=== PATIENT | male | born 1960 | race Caucasian/White ===

== ENCOUNTER 2023-09-19 13:18 | Outpatient (CLI) | payer MEDICARE, SELFPAY ==
--- NOTE | ~2023-09-19 | CT_ITS ---
EXAMINATION: CT cervical spine wo con DATE: 09/19/2023 13:43 INDICATION: Cervical radiculopathy. Bilateral hand tingling. TECHNIQUE: Computed tomography (CT) of the cervical spine was performed without intravenous contrast. Automated exposure control and iterative reconstruction technique were employed. The dose-length pro duct was 599.32 mGy-cm. COMPARISON: None FINDINGS: There is mild emphysema. Calcified pulmonary nodules and calcified mediastinal lymph nodes are consistent with old granulomatous disease. There is 3 degrees dextrocurvature of cervicothoracic spine. There is kyphosis of lower cervical spine. There are changes of anterior fusion procedure from C5 to T1 with healed interbody bone graft and anterior plate and screws. There is moderately decreas ed disc height at C2-C3. The following disc levels are specifically discussed: C2-C3: There is severe bilateral uncovertebral joint osteoarthritis. There is severe bilateral facet joint osteoarthritis. There is mild bilateral neural foraminal stenosis. There is no central canal st enosis. C3-C4: There is moderate right and mild left uncovertebral joint osteoarthritis. There is severe bila teral facet joint osteoarthritis. There is moderate right and mild left neural foraminal stenosis. Th ere is mild central canal stenosis. C4-C5: There is moderate right and mild left uncovertebral joint osteoarthritis. There is severe righ t and mild left facet joint osteoarthritis. There is moderate right neural foraminal stenosis. There is mild central canal stenosis. C5-C6: There is mild bilateral uncovertebral joint hypertrophy. There is ankylosis of the facet joint s with mild hypertrophy. There is mild bilateral neural foraminal stenosis. There is no central canal stenosis. C6-C7: There is moderate right and mild left uncovertebral joint hypertrophy. There is ankylosis of t he facet joints without hypertrophy. There is mild bilateral neural foraminal stenosis. There is mild central canal stenosis. C7-T1: There is no uncovertebral joint hypertrophy. There is ankylosis of the facet joints with mild hypertrophy. There is mild bilateral neural foraminal stenosis. There is no central canal stenosis. IMPRESSION: 1. Moderate cervical spondylosis. 2. Anterior fusion procedure from C5 to T1. Reviewed, dictated and finalized at location A. [employer]
== END 2023-09-19 13:19 | disposition home or self-care (01) ==
LOC: CHSIMG 13:23
PROVIDERS: PCP Physician Assistant; Visit Provider Physician Assistant
DX: M54.12 Radiculopathy, cervical region (principal); M43.02 Spondylolysis, cervical region; Z98.1 Arthrodesis status
CPT/HCPCS: 72125

== ENCOUNTER 2024-01-23 19:15 | Emergency (ER) | payer MEDICARE, SELFPAY ==
[2024-01-23] VITALS (11 sets, daily range): BP systolic 121–153; BP diastolic 75–87; PULSE 86; RESP 20; TEMP 36.7; O2SAT 93–95
--- NOTE | ~2024-01-23 | CT_ITS ---
EXAMINATION: CT brain wo con DATE: 01/23/2024 20:24 INDICATION: Head and neck injury. TECHNIQUE: Computed tomography (CT) of the head was performed without intravenous contrast. The mA wa s adjusted according to patient size. Iterative reconstruction technique was employed. The dose-lengt h product was 681.00 mGy-cm. COMPARISON: None FINDINGS: There is no intracranial hemorrhage, acute infarction, or abnormal intracranial mass lesion . The ventricles are normal in size. There is a left anterolateral scalp hematoma. There is mucosal t hickening in the paranasal sinuses. The mastoid air cells are normal. IMPRESSION: 1. Normal brain. Reviewed, dictated and finalized at location E. IMPRESSION: 1. Normal brain.
--- NOTE | ~2024-01-23 | CT_ITS ---
EXAMINATION: CT cervical spine wo con DATE: 01/23/2024 20:24 INDICATION: Head and neck injury. TECHNIQUE: Computed tomography (CT) of the cervical spine was performed without intravenous contrast. Automated exposure control and iterative reconstruction technique were employed. The dose-length pro duct was 681.00 mGy-cm. COMPARISON: None FINDINGS: There is kyphosis of lower cervical spine. There are changes of anterior fusion procedure f rom C5 to T1 with healed interbody bone graft and anterior plate and screws. Vertebral body heights a re normal. There is mildly decreased disc height at C2-C3. The following disc levels are specifically discussed: C2-C3: There is severe bilateral uncovertebral joint osteoarthritis. There is severe bilateral facet joint osteoarthritis. There is mild bilateral neural foraminal stenosis. There is no central canal st enosis. C3-C4: There is severe bilateral uncovertebral joint osteoarthritis. There is severe bilateral facet joint osteoarthritis. There is moderate right and mild left neural foraminal stenosis. There is mild central canal stenosis. C4-C5: There is moderate right and mild left uncovertebral joint osteoarthritis. There is severe righ t and mild left facet joint osteoarthritis. There is moderate right neural foraminal stenosis. There is mild central canal stenosis. C5-C6: There is mild bilateral uncovertebral joint hypertrophy. There is mild bilateral facet joint h ypertrophy. There is mild lateral neural foraminal stenosis. There is mild central canal stenosis. C6-C7: There is moderate bilateral uncovertebral joint hypertrophy. There is mild bilateral facet jignesh nt hypertrophy. There is mild bilateral neural foraminal stenosis. There is mild central canal stenos is. C7-T1: There is mild bilateral uncovertebral joint hypertrophy. There is mild bilateral facet joint h ypertrophy. There is mild left neural foraminal stenosis. There is no central canal stenosis. IMPRESSION: 1. No fracture. 2. Moderate cervical spondylosis. 3. Anterior fusion procedure from C5 to T1. Reviewed, dictated and finalized at location E.
--- NOTE | 2024-01-23 19:38 | ECG_ITS ---
SEE SCANNED COPY FOR CONFIRMED REPORT MTDD
[2024-01-23] MEDS: TETANUS,DIPHTHERIA,AC PERTUSSIS ADULT 0.5 ML (ADACEL) IM (19:47)
--- NOTE | 2024-01-23 19:52 | PC.NURSE ---
Pt ambulated to restroom without incident
[2024-01-23 19:59] LABS: Basophils Absolute Auto 0.11 K/mm3 (0.00-0.10); Basophils Percent Auto 0.8 % (0.0-1.0); Eosinophils Absolute Auto 0.45 K/mm3 (0.02-0.50); Eosinophils Percent Auto 3.1 % (1.0-6.0); Hematocrit 45.2 % (40.0-54.0); Hemoglobin 15.4 g/dL (14.0-18.0); Immature Granulocyte Absolute 0.08 K/mm3 (0.00-0.00); Immature Granulocyte Percent A 0.6 % (0.0-0.0); Lymphocytes Absolute Auto 3.11 K/mm3 (1.10-4.50); Lymphocytes Percent Auto 21.5 % (18.0-42.0); Mean Corpuscular HGB Conc 34.1 g/dL (32-36); Mean Corpuscular Hemoglobin 32.2 pg (27.0-31.0); Mean Corpuscular Volume 94.6 fL (78.0-102.0); Mean Platelet Volume 8.9 fl (8.7-11.0); Monocytes Absolute Auto 1.23 K/mm3 (0.10-0.90); Monocytes Percent Auto 8.5 % (2.0-11.0); Neutrophils Absolute Auto 9.48 K/mm3 (1.70-7.20); Neutrophils Percent Auto 65.5 % (50.0-70.0); Platelet Count Result 297 K/mm3 (150-420); Red Blood Count 4.78 M/mm3 (4.70-6.10); Red Cell Distribution Width 11.6 % (11.6-14.4); White Blood Count 14.5 K/mm3 (4.8-10.8)
[2024-01-23 20:07] LABS: Appearance Urine Clear (Clear); Bilirubin Urine Negative (Negative); Blood Urine Trace-intact (Negative); Color Urine Light Yellow (Yellow); Glucose Urine UA Negative (Negative); Ketones Urine Negative (Negative); Leukocyte Esterase Ur Negative LEU/UL (Negative); Nitrate Urine Negative (Negative); Protein Urine Negative (Negative); Specific Grav Ur <= 1.005 (1.010-1.020); Urobilinogen Urine 0.2 mg/dL (0.2-1.0)
[2024-01-23 20:18] LABS: Alanine Aminotransferase 99 U/L (16-63); Albumin Level 3.6 g/dL (3.4-5.0); Alkaline Phosphatase 67 U/L (46-116); Anion Gap 12 mmol/L (4-12); Aspartate Amino Transferase 77 U/L (15-37); Bilirubin,Total 0.3 mg/dL (0.00-1.00); Blood Urea Nitrogen 11 mg/dL (7-18); Calcium 8.3 mg/dL (8.5-10.1); Carbon Dioxide 25 mmol/L (21-32); Chloride 95 mmol/L (98-108); Creatine Kinase 311 U/L (39-308); Estimated CRCL calculation 82 ml/min; Estimated Glomerular Filt Rate > 60; Ethanol 185 mg/dL (0-6); Glucose 90 mg/dL (70-99); Osmolality Calculated 273 mOsm/kg (285-295); Potassium 3.8 mmol/L (3.5-5.1); Sodium 132 mmol/L (136-145); Total Protein 7.6 g/dL (6.4-8.2)
[2024-01-23 20:19] LABS: Lactic Acid Reflex 2.1 mmol/L (0.4-2.0)
[2024-01-23 20:21] LABS: Add Urine Microscopic? YES; Bacteria Urine None seen /hpf; RBC Urine 0-2 /hpf (0-2); Squamous Epithelial Cell Urine None seen /hpf (Few); WBC Urine 0-3 /hpf (0-3)
--- NOTE | 2024-01-23 20:38 | ED.HEATRA ---
HPI - Head Injury General Chief complaint: Fall Stated complaint: laceration Time Seen by Provider: 01/23/24 19:19 Source: patient and family Mode of arrival: wheelchair History of Present Illness HPI Narrative: This is a 63-year-old male who presents with syncopal episode after he has been drinking had approximately drains in for labs a park bench striking the left side of his forehead causing hematoma. Otherwise patient denies any chest pain or shortness of breath no fever chills no nausea vomiting no abdominal pain no flank pain no dysuria or hematuria. Complaint: head injury Onset (ago): hour(s) Mechanism of Injury: fall Place: outdoors Loss of Consciousness: yes Location of injury: frontal Severity: mild Severity scale (1-10): 3 Quality: dull Radiation: none Other Injuries: none Context: on aspirin Associated symptoms: denies other symptoms Related Data Home Medications Medication Instructions Recorded Confirmed aspirin 81 mg capsule 81 mg PO DAILY 01/23/24 01/23/24 atorvastatin 20 mg tablet 20 mg PO DAILY 01/23/24 01/23/24 lisinopril 20 mg tablet 20 mg PO DAILY 01/23/24 01/23/24 Allergies Allergy/AdvReac Type Severity Reaction Status Date / Time Penicillins AdvReac Itching Verified 01/23/24 19:19 Review of Systems Review of Systems: All systems reviewed & are unremarkable except as noted in HPI and below PMFSH Past Medical History Medical History HTN (hypertension) Exam Const: General: no acute distress Nutritional Appearance: well nourished Orientation/consciousness: patient oriented x3 HENMT: Head: normal to inspection Eyes: Conjunctivae: conjunctivae normal Pupils: Equal, round and reactive pupils present EOM: EOMs intact bilaterally Neck: Neck: normal visual inspection Chest: Chest palpation & inspection: normal inspection of the chest Resp: Effort & Inspection: normal respiratory effort Auscultation: clear to auscultation bilaterally Cardio: Rate: regular rate Rhythm: regular rhythm GI: GI Palp: Yes Soft to palpation Auscultation: normal bowel sounds Back/Spine/Pelvis: Back: no CVA tenderness Skin: Wounds: wounds noted Other: hematoma left frontal scalp Neuro: General: patient oriented x3, moves all extremities, no meningeal signs and no focal motor deficits Cranial nerves: Yes CN's II-XII intact bilaterally and Yes Nystagmus not present Speech: normal speech Extrem: General: normal to inspection, no clubbing, cyanosis or edema and no pedal edema Psych: Mental Status: mental status grossly normal Affect: normal affect Course Course Emergency Course: patient had CT scan of cervical spine and brain which showed no acute abnormalities, blood work performed does show a serum sodium level of 132 patient is stable for discharge and EKG performed shows sinus rhythm advised patient to follow with his primary. Alcohol level 183. Vital Signs Vital signs: Vital Signs Temperature 36.7 C 01/23/24 19:17 Pulse Rate 86 01/23/24 19:17 Respiratory Rate 20 01/23/24 19:17 Blood Pressure 153/84 H 01/23/24 19:17 Pulse Oximetry 95 01/23/24 19:17 Oxygen Delivery Room Air 01/23/24 19:17 Temperature 36.7 C 01/23/24 19:21 Pulse Rate 86 01/23/24 19:17 Respiratory Rate 20 01/23/24 19:17 Blood Pressure 123/78 01/23/24 20:31 Pulse Oximetry 95 01/23/24 20:31 Oxygen Delivery Room Air 01/23/24 19:17 MDM - Head Injury Lab Data 01/23/24 19:55 01/23/24 19:55 Labs: Lab Results 01/23/24 Range/Units 19:55 WBC 14.5 H (4.8-10.8) K/mm3 RBC 4.78 (4.70-6.10) M/mm3 Hgb 15.4 (14.0-18.0) g/dL Hct 45.2 (40.0-54.0) % MCV 94.6 (78.0-102.0) fL MCH 32.2 H (27.0-31.0) pg MCHC 34.1 (32-36) g/dL RDW 11.6 (11.6-14.4) % Plt Count 297 (150-420) K/mm3 MPV 8.9 (8.7-11.0) fl Immature Gran % (Auto) 0.6 H (0.0-0.0) % Neut % (A
--- NOTE | 2024-01-23 20:40 | PC.NURSE ---
Witnessed pt with unsteady gait when attempting to stand. MD informed. Pt reports slight dizziness.
[2024-01-23 22:06] LABS: Reflex Lactic Acid Yes or No No Lactic Reflex
== END 2024-01-23 20:58 | disposition home or self-care (01) ==
PROVIDERS: Emergency Provider Emergency Medicine; PCP Physician Assistant
DX: R55 Syncope and collapse (principal); S09.90XA Unspecified injury of head, initial encounter; F10.120 Alcohol abuse with intoxication, uncomplicated; W19.XXXA Unspecified fall, initial encounter; I10 Essential (primary) hypertension; Z79.82 Long term (current) use of aspirin; Z23 Encounter for immunization; Z79.899 Other long term (current) drug therapy
CPT/HCPCS: 36415; 70450; 72125; 80053; 80307; 81001; 82550; 83605; 83735; 85025; 90471; 90715; 93005; 99284